=== PATIENT | male | born 1950 | race Caucasian/White ===

== ENCOUNTER → 2017-10-13 | Outpatient (CLI) | payer OTHER, MEDICARE ==
[~2017-10-13] VITALS: Ht 172.7 cm; Wt 90.7 kg
[~2017-10-13] MED LIST: AMITRIPTYLINE H10 M1 PO; FLEXERIL PO; LIPITOR10 MG PO; MOBIC15 MG PO; NORVASC5 MG PO; PERCOCET 5-3251 EACH PO
--- NOTE | ~2017-10-13 | HPC ---
[facility] [place] [address] PAIN MANAGEMENT CONSULTATION Name: KENTRELL COPPOLA Room #: REG [facility] Dano#: [id number] Admission: 10/13/17 Attend Phys: Izabel Bolton MD Discharge: Date of : 52 Report #: [id number] THIS REPORT FOR: //name// CC: Izabel Rubi MD DATE OF SERVICE: 10/13/2017 CHIEF COMPLAINT: Extreme pain radiating down into the left leg. I am almost unable to walk. HISTORY OF PRESENT ILLNESS: The patient is a 67-year-old gentleman who has been referred to the pain clinic for evaluation. The patient states that he has been having some pain and discomfort involving his low back. He and his bought a new bed. After sleeping on the mattress for a period of time, he noted some pain and discomfort in his low back. He felt that this might be as a result of the new mattress. He did try a heating pad in the lower area of his back. He noted that the pain in the lower back down into his left leg has become more problematic and painful over the last week. Because of the increasing pain, he went to see a chiropractor. He did have some adjustments. After about a week of adjustments, he continued to have pain, which was problematic. As a result of that, he was provided an MRI. At the conclusion of the MRI, it was felt that the patient has some significant pathology and that he should probably be seen by a pain physician. The patient states that [place] Because he did not have a referral, he was not seen. The patient was then referred to the pain clinic for further evaluation and workup. He denies any bowel or bladder dysfunction. He has noted pain, which is so severe that he has been unable to engage in activities of daily living. He is sleeping very poorly. Has not noted any significant [id number]-gpgxbnu medications or other medications to help decrease his pain at this juncture. He has not had back surgery. He denies any trauma to his back. ALLERGIES: No known drug allergies. CURRENT MEDICATIONS: 1. Lipitor 10 mg at bedtime. 2. Flexeril 10 mg t.i.d. for spasms. 3. Norvasc 5 mg daily. The patient states that he was given a pain medicine, the name of which he could not recall by his primary physician. 4. Aspirin 81 mg daily. PAST MEDICAL HISTORY: Hypercholesterolemia, hypertension. PAST SURGICAL HISTORY: [place] [address] PAIN MANAGEMENT CONSULTATION Name: KENTRELL COPPOLA Room #: REG [facility] Dano#: [id number] Admission: 10/13/17 Attend Phys: Izabel Bolton MD Discharge: Date of : 52 Report #: [id number] SOCIAL HISTORY: He is retired. He is . Denies use of tobacco. Occasional alcoholic beverage. REVIEW OF SYSTEMS: Questionnaire in the chart. A 12-point reveal generally good health, awakens at night to urinate, sexual difficulty, numbness in the left lower extremity over the last few days. LABORATORY DATA: MRI of the lumbar spine dated 10/08/2007 reveals: 1. L3-L4 disk narrowed with circumferential osteophyte/disk complex. No evidence of disk protrusion. Mild inferior neural foraminal encroachment present. Mild facet arthropathy. Thecal sac 0.9 cm AP. 2. L4-L5 disks narrowed with left recess disk extrusion. Disk material is extruded cranially to the disk line at the lateral recess extending 1.5 cm superior to the disk. There is localized mass effect on the lateral recess. There is advanced facet arthropathy and posterior ligamentum hypertrophy. The findings result in a 0.5 cm AP diameter at the midline thecal sac. There is severe bilateral neural foraminal encroachment. Thecal sac 0.5 cm AP. 3. L5-S1 the disk is normally positioned. No evidence of disk protrusion. No central canal stenosis or neural foraminal encroachment. Mild facet arthropathy. Thecal sac 1.2 cm AP. PAIN CLINIC ASSESSMENT: 1. The patient has not been treated for osteoarthritis. He is not being treated for rheumatoid arthritis. 2. Height 5 feet 8 inches, weight 200 pounds, BMI is 30. 3. Vital signs: Blood pressure 190/111. Pulse 88, respiratory rate 14, room air saturation 97%. 4. Pain intensity 10/10. 5. Fall risk. The patient has not fallen in the last 3 months. 6. Blood thinner. The patient is not on a blood thinner 7. History of hypertension. The patient is being treated for hypertension, states his blood pressure is usually normal but the pain is so intense that it elevate his blood pressure. 8. Opioid therapy greater than 6 weeks. The patient is not on an opioid contract. 9. Risk assessment tool. 10. Functional assessment tool. 11. Recreational drug use. The patient never used recreational drugs. 12. Tobacco: The patient is not a smoker. 13. Alcohol. The patient drinks about 6 alcoholic beverages per week. PHYSICAL EXAMINATION: GENERAL: The patient is a well-developed white male, appears his stated age. Orientation: The patient is alert and oriented x 3. The patient's affect is appropriate. Has facial features indicating pain with grimacing particularly with motion. [facility] [address] [place] [address] PAIN MANAGEMENT CONSULTATION Name: KENTRELL COPPOLA Room #: REG [facility] Dillan#: [id number] Admission: 10/13/17 Attend Phys: Izabel Bolton MD Discharge: Date of : 51 Report #: [id number] HEENT: Normocephalic, atraumatic. Extraocular eye muscles intact. Sclerae is nonicteric. Mucous membranes moist. Hearing is within normal limits. NECK: Good range of motion without bruits. HEART: Regular rate. ABDOMEN: Nontender, without organomegaly. MUSCULOSKELETAL: Normal without significant scoliosis, kyphosis or lordosis. The patient is at the upper extremities judged to be 5/5 for the major muscle groups in the upper extremity. Gas [employer] Pet[employer] Operator strength 5/5. Sensory within normal limits. Lower extremity, the patient is in a wheelchair. Requires some assistance while standing. Sits and constantly rubs his left leg while the interview is being undertaken. Positive straight leg raise. Rates his pain as a 10/10. Muscle strengths on the right, judged to be 5/5, left, difficult to appreciate secondary to patient's almost inability to stand on the left leg, continues to rub it while sitting. IMPRESSION: 1. Lumbar radiculopathy with extrusion with disk extrusion at L4-L5 migrating 1.4 cm superior to the disk resulting in mass effect upon the lateral recess. 2. Hypertension, elevated secondary to patient's extreme pain. 3. Hypercholesterolemia. RECOMMENDATIONS: We discussed treatment options with the patient. Risks and benefits of an epidural steroid injection were discussed. The patient had his disk present. It was placed in the computer. It was reviewed with the patient and his . The anatomy of the spine was discussed. The patient states that he could see the pathologic areas in his low back area. He and his agreed to proceed. Possible complication of the procedure were discussed. They could include but are not limited to infection, increased muscle soreness, headache, bleeding, worsening of pain, nerve damage and the patient elects to proceed. PROCEDURE NOTE: The patient was wheeled into the procedure room. He was assisted from the wheelchair onto the bed in the prone position. His back was sterilely prepped and the L4-L5 interspace. Fluoroscopy using the anterior, posterior as well as the lateral positioning of the fluoroscopy machine was used to identify the appropriate placement. This area was then infiltrated with 0.25% bupivacaine. A total of 80 mg Depo-Medrol, 40 mg triamcinolone and 2 mL of 0.25% bupivacaine was injected. The patient tolerated the procedure well. There were no complications. He did not complain of any pain or discomfort during the performance of the procedure. Fluoro time of 10 seconds was used. His pain decreased from 10-1 at the time of discharge. He has been given a script for Percocet 5/325 one p.o. q. 6 hours p.r.n. pain. The patient has also been given Elavil, amitriptyline 10 mg 1 p.o. at bedtime to help with the nerve pain as well as at night to help improve his sleep. He states he has not slept well for a number of days. He is quite exhausted as a result of that. He will [facility] [address] [place] [address] PAIN MANAGEMENT CONSULTATION Name: KENTRELL COPPOLA Room #: REG [facility] Matson#: [id number] Admission: 10/13/17 Attend Phys: Izabel Bolton MD Discharge: Date of : 51 Report #: [id number] call us if he has any problems with his medications. We would like to thank you for letting us participate in his care. We hope he continues to improve. <ELECTRONICALLY SIGNED> By: Izabel Bolton MD 10/20/17 0815 [id number] [id number] Izabel Bolton MD /[facility]
[2017-10-13 11:13] VITALS: BP 190/111
== END | disposition home or self-care (01) ==
LOC: PAIN 09:40
DX: M54.16 Radiculopathy, lumbar region (principal); I10 Essential (primary) hypertension; E78.00 Pure hypercholesterolemia, unspecified; Z68.30 Body mass index [BMI] 30.0-30.9, adult; Z79.899 Other long term (current) drug therapy; F11.20 Opioid dependence, uncomplicated

== ENCOUNTER → 2017-10-27 | Outpatient (CLI) | payer OTHER, MEDICARE ==
[~2017-10-27] VITALS: Ht 172.7 cm; Wt 89.4 kg
--- NOTE | ~2017-10-27 | HPC ---
[facility] [place] [address] PAIN MANAGEMENT CONSULTATION Name: KENTRELL COPPOLA Room #: REG [facility] Matson#: [id number] Admission: 10/27/17 Attend Phys: Izabel Bolton MD Discharge: Date of : 51 Report #: [id number] THIS REPORT FOR: //name// CC: Izabel Rubi MD DATE OF SERVICE: 10/27/2017 FOLLOWUP COMPLAINT: "Here for treatment for left leg pain, which is going down into my foot." FOLLOWUP HISTORY: The patient is a 67-year-old gentleman, who has been seen in the pain clinic, because of pain involving his low back and pain radiating down into his foot. The patient has noted some worsening of pain and discomfort in his back and leg. He recently bought a new bed. He felt that that might be the etiology of his back pain. Tried using a heating pad on his lower back. Continued to have pain that radiates down to his left leg. This has become more problematic over the last week. He has sought the attention of a chiropractor. He did have some adjustments made. After about a week of adjustments, he continued to have pain, which was still increasingly more problematic. An MRI was performed. From the MRI, it was felt that he had a significant problem in his back and he probably needed to be treated by a medical doctor. The patient was seen by a "doctor." He was referred to the pain clinic at [facility]. His pain has risen to the level that he is unable to engage in activities of daily living. He described as severe pain. His sleep has been very poor. Kbac-dnz-citpzdy medications have not been helpful. He was seen in the pain clinic on 10/13/2017 and has returned to the pain clinic for an epidural steroid injection at this juncture. ALLERGIES: No known drug allergies. MEDICATIONS: 1. Lipitor 10 mg at bedtime. 2. Flexeril 10 mg t.i.d. for spasm. 3. Norvasc 5 mg daily. The patient states that he was given a pain medication, the name of which he could not recall. 4. Aspirin 81 mg. PAIN ASSESSMENT: 1. The patient has not been treated in the past for osteoarthritis. He is not being treated for rheumatoid arthritis. 2. Height 5 feet 8 inches, weight 197 pounds, BMI is 30. 3. VITAL SIGNS: Blood pressure 151/102, pulse 102, respiratory rate 16, room air saturation 97%. 4. Pain intensity 10/10[place] [address] PAIN MANAGEMENT CONSULTATION Name: WINGTURNERKENTRELL JON Room #: REG [facility]#: [id number] Admission: 10/27/17 Attend Phys: Izabel Bolton MD Discharge: Date of : 52 Report #: [id number] 5. Fall risk. The patient has not fallen in the last 3 months. 6. Blood thinner. The patient is not on a blood thinner. 7. History of hypertension. The patient is being treated for hypertension. 8. Opioid therapy greater than 6 weeks. The patient is not on an opioid contract. 9. Risk assessment tool. 10. Functional assessment tool. 11. Recreational drug use. The patient denies use of recreational drugs. 12. Tobacco: The patient is not a smoker. 13. Alcohol: The patient drinks about a 6 alcoholic beverages per week. PHYSICAL EXAMINATION: GENERAL: The patient is a well-developed white male, appears his stated age. Orientation: He is alert and oriented x 3. Affect: The patient's affect is appropriate. Speech is fluent. HEENT: Normocephalic, atraumatic. Extraocular eye muscles intact. Sclerae is nonicteric. Mucous membranes are moist. Hearing is within normal limits. NECK: With good range of motion without bruits or adenopathy. HEART: Regular rate. S1, S2. ABDOMEN: Nontender, without organomegaly. MUSCULOSKELETAL: Without significant scoliosis, kyphosis or lordosis. 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 Sensory exam is within normal limits. Lower extremity, the patient is in a wheelchair. Require some assistance in standing. Sits and constantly rubs his left leg while interviewed. Positive straight leg raise on the left. Rates his pain as a 10/10 at this juncture. Muscle strength on the right is judged to be 5/5, left difficult to appreciate secondary to patient's inability to stand on the left leg. IMPRESSION: 1. Lumbar radiculopathy with extrusion of disk at L4-L5 with migration 1.4 cm superior to the disk resulting in mass effect upon the lateral recess. 2. Hypertension. 3. Hypercholesterolemia. RECOMMENDATIONS: We discussed treatment options with the patient. Risks and benefits of an epidural steroid injection had been discussed with the patient. Possible complications of the procedure were reviewed. The patient has returned today for an epidural steroid injection. He has thought about the procedure. Questions have been sought and answered. The patient was then assisted into the procedure room. He was helped on to the bed. He was placed in the prone position. His back was sterilely prepped with a Betadine solution at the L4-L5 interspace area. Fluoroscopy was used to identify the appropriate injection site using anterior and posterior as well as lateral viewing. The left paraspinous L4-L5 area was identified. This area was then infiltrated with [facility] [address] [place] [address] PAIN MANAGEMENT CONSULTATION Name: KENTRELL COPPOLA Room #: REG [facility]#: [id number] Admission: 10/27/17 Attend Phys: Izabel Bolton MD Discharge: Date of : 51 Report #: [id number] 0.25% bupivacaine. A 17-gauge Tuohy with loss of resistance technique was used to gain access to the epidural space. There was no CSF, heme or paresthesia. A total of 80 mg Depo-Medrol, 40 mg triamcinolone and 2 mL of 0.25% bupivacaine was injected. The patient tolerated the procedure well. There were no complications. He remained in the pain clinic for an appropriate amount of time. He will follow up in the future as needed. We would like to thank you for letting us participate in his care. We hope he continues to improve. The patient's pain score decreased to 3 at the time of discharge. A total of 29 seconds fluoroscopy time was used. <ELECTRONICALLY SIGNED> By: Izabel Bolton MD 11/10/17901 1612 25 Izabel Bolton MD /nt
[2017-10-27 11:03] VITALS: BP 151/102
== END | disposition home or self-care (01) ==
LOC: PAIN 06:58
DX: M54.16 Radiculopathy, lumbar region (principal); G89.29 Other chronic pain; I10 Essential (primary) hypertension; E78.00 Pure hypercholesterolemia, unspecified; Z79.899 Other long term (current) drug therapy; Z79.82 Long term (current) use of aspirin; Z79.891 Long term (current) use of opiate analgesic

== ENCOUNTER → 2018-05-02 | Outpatient (CLI) | payer OTHER, MEDICARE ==
[~2018-05-02] VITALS: Ht 172.7 cm; Wt 94.7 kg
[~2018-05-02] MED LIST changes: +MEDROLDOSEPACK PO
--- NOTE | ~2018-05-02 | HPC ---
[facility] [place] [address] [address] PAIN MANAGEMENT CONSULTATION Name: KENTRELL COPPOLA Room #: REG [facility] GrimaldoJesus#: [id number] Admission: 05/02/18 Attend Phys: Izabel Bolton MD Discharge: Date of : 51 Report #: [id number] THIS REPORT FOR: //name// CC: Izabel Rubi MD DATE OF SERVICE: 05/02/2018 PRIMARY CARE PHYSICIAN: Miles Hill M.D. CHIEF COMPLAINT: Left hip pain with radiation down into the knee. FOLLOWUP HISTORY: The patient is a 67-year-old gentleman who has been seen in the pain clinic because of lumbar radiculopathy. He has undergone epidural steroid injections and gleaned benefits from these. He returns today indicating that he is having some pain and discomfort in his left hip with some radiating down to his knee. He rates his pain as 5/10 at this juncture. Pain is exacerbated by walking, bending, reaching and certain activities of daily living. The patient has had 3 epidural steroid injections. He has gleaned benefits greater than 50% from them. At this juncture, he is contemplating options. He was able to go to [facility]. ALLERGIES: No known drug allergies. CURRENT MEDICATIONS: Lipitor 10 mg at bedtime, Flexeril 10 mg t.i.d. for spasms, Norvasc 5 mg daily, and aspirin 81 mg. PAIN CLINIC ASSESSMENT AND PQRS: 1. The patient is not being treated for osteoarthritis. He has not been treated for rheumatoid arthritis. 2. Height 5 feet 8 inches, weight 208 pounds, BMI is 31.8. 3. Vital Signs: Blood pressure 136/86, pulse 70, respiratory rate 16, room air saturation is 97%. 4. Pain intensity 5/10. 5. Fall risk. The patient has not fallen in the last 3 months. 6. Blood thinner. The patient is not on a blood thinning medication. 7. Hypertension. The patient is being treated for hypertension. 8. Opioid greater than 6 weeks. The patient is not on a regular opioid regimen. 9. Risk assessment tool, low risk 09/02 for opioid use. 10. Functional assessment tool, . 11. Recreational drug use: The patient denies. 12. Tobacco: The patient has never smoked. 13. Alcohol: The patient drinks occasionally. [address] [address] PAIN MANAGEMENT CONSULTATION Name: WINGTURNERKENTRELL JON Room #: REG [facility]#: [id number] Admission: 05/02/18 Attend Phys: Izabel Bolton MD Discharge: Date of : 51 Report #: [id number] PHYSICAL EXAMINATION: GENERAL: The patient is a well-developed, well-nourished, white male. Appears his stated age. He is alert and oriented x 3. Speech is fluent. HEENT: Normocephalic, atraumatic. Extraocular eye muscles intact. Sclerae nonicteric. Mucous membranes are moist. Hearing is within normal limits. NECK: With good range of motion without bruits or adenopathy. HEART: Regular rate. S1, S2. ABDOMEN: Nontender, without organomegaly. MUSCULOSKELETAL: Without significant scoliosis, kyphosis or lordosis. Upper extremity muscle strength is judged to be 5/5 for the major muscle groups. The patient has some pain in the left leg with positive straight leg raise. Muscle strength on the right judged to be 5/5. States that he is able to walk his dog around the block on occasion, but sometimes is unable to follow up with walking his dog. IMPRESSION: 1. Lumbar radiculopathy with extrusion of disk at L4-L5 and migration 1.4 cm superior to the disk resulting in a mass effect on the lateral recess. 2. Hypertension. 3. Hypercholesterolemia. RECOMMENDATIONS: We discussed treatment options with the patient. We will consider a Medrol Dosepak and note its efficacy. Possibility of another injection in the future is possible. Again, the patient is having some pain and discomfort. We will try a Medrol Dosepak. A script for Medrol Dosepak has been written. He will call us if he has any problems with the medications. We would like to thank you for letting us participate in his care. We hope he continues to improve. By: 1549 [id number] Izabel Bolton MD /[facility]
[2018-05-02 10:03] VITALS: BP 136/86
== END ==
LOC: PAIN 06:45
DX: M54.16 Radiculopathy, lumbar region (principal); I10 Essential (primary) hypertension; E78.00 Pure hypercholesterolemia, unspecified

== ENCOUNTER → 2018-08-15 | Outpatient (CLI) | payer OTHER, MEDICARE ==
[~2018-08-15] VITALS: Ht 172.7 cm; Wt 97.0 kg
[~2018-08-15] MED LIST changes: +AMLODIPINE BESY10 MG PO
--- NOTE | ~2018-08-15 | HPC ---
[facility] [place] [address] PAIN MANAGEMENT CONSULTATION Name: EMILDOMINGAKENTRELL Esequiel Room #: REG Alvarado Matson#: [id number] Admission: 08/15/18 Attend Phys: Izabel Bolton MD Discharge: Date of : 52 Report #: [id number] THIS REPORT FOR: //name// CC: Izabel Aquino Nestor DATE OF SERVICE: 08/15/2018 CHIEF COMPLAINT: Here for an epidural steroid injection. HISTORY OF PRESENT ILLNESS: The patient is a 68-year-old gentleman who has been followed in the Pain Clinic because of lumbar radiculopathy. Epidural steroid injections in the past have been beneficial. He has gleaned greater than 50% improvement with these. He returns today indicating that his pain has returned. He is experiencing pain that is radiating down in the L4-L5 dermatomal distribution. He rates it as a 5/10. He notes that when he reaches up to grab or move something, he notes worsening of pain down his leg. 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 He notes increased pain and discomfort when he is sleeping. When he rolls over, he must do it carefully, otherwise it causes a significant amount of pain and discomfort. He has used a wheelchair in the past. ALLERGIES: No known drug allergies. CURRENT MEDICATIONS: Lipitor 10 mg 1 p.o. at bedtime, Flexeril 10 mg t.i.d., Norvasc 5 mg, aspirin 81 mg. PAIN CLINIC ASSESSMENT AND PQRS: 1. The patient is not being treated for osteoarthritis. He is not being treated for rheumatoid arthritis. 2. Height 5 feet 8 inches, weight is 213 pounds, BMI is 32.5. 3. Vital signs: Blood pressure 145/86, pulse 83, respiratory rate 20, room air saturation 98%. 4. Pain intensity: 5/10. 5. Fall risk: The patient has not fallen in the last 3 months. 6. Blood thinner: The patient is not on a blood thinning medication. 7. Hypertension: The patient is being treated for hypertension. 8. Opioids greater than 6 weeks: The patient is not on an opioid regimen on a regular basis. 9. Risk assessment tool: 08/05, low for opioid use. 10. Functional assessment tool: . 11. Recreational drug use: The patient denies use of recreational drugs. 12. Tobacco: The patient denies use of tobacco. 13. Alcohol: The patient frequently drinks a beer a day. PHYSICAL EXAMINATION: [address] [address] PAIN MANAGEMENT CONSULTATION Name: KENTRELL COPPOLA Esequiel Room #: REG [facility] MariiJesus#: [id number] Admission: 08/15/18 Attend Phys: Izabel Bolton MD Discharge: Date of : 52 Report #: [id number] GENERAL: The patient is a well-developed, well-nourished, white male. He appears his stated age. He is alert and oriented x 3. His affect is appropriate. Speech is fluent. HEENT: Normocephalic, atraumatic. Extraocular eye muscles intact. Sclerae nonicteric. Mucous membranes are moist. Hearing is within normal limits. NECK: With good range of motion without bruits or JVD. HEART: Regular rate, S1 and S2. ABDOMEN: Nontender. Bowel sounds present. MUSCULOSKELETAL: Without significant scoliosis, kyphosis or lordosis. Upper extremity muscle strength is judged to be 5/5 for the major muscle groups in the upper extremity. The patient has pain down in the left leg with positive straight leg raise. Muscle strength is judged to be 5-/5. The patient states he is able to walk his dog around the block on occasion, but sometimes notes problem walking because of his pain and discomfort. IMPRESSION: 1. Lumbar radiculopathy with history of extrusion of a disk at L4-L5 with migration 1.4 cm superior to the disk resulting in a mass effect upon the lateral recess. 2. Hypertension. 3. Hypercholesterolemia. RECOMMENDATIONS: We discussed treatment options with the patient. At this juncture, risks and benefits of an epidural steroid injection were again discussed and reviewed. They include but are not limited to infection, worsening of pain, no improvement in pain, nerve damage, paralysis, and the patient elects to proceed. PROCEDURE NOTE: The patient was taken to the procedure area. He was assisted in getting on the examination table. A pillow was placed under his abdomen to bolster and improve positioning. Fluoroscopy using anterior and posterior as well as lateral viewing were implemented. The patient's back was sterilely prepped at the L4-L5 interspace. A 0.25% bupivacaine was infiltrated using a 25-gauge needle. A 17-gauge Tuohy with loss of resistance technique was used to gain access at the L4-L5 interspace. Aspiration was negative. A total of 80 mg Depo-Medrol, 40 mg triamcinolone, and 2 mL of 0.25% bupivacaine was injected. The patient tolerated the procedure well. There were no complications. He remained in the Pain Clinic for an appropriate amount of time. We would like to thank you for letting us participate in his care. We hope he continues to improve. By: [id number] MD teja Unger
[2018-08-15 13:23] VITALS: BP 145/86
--- NOTE | 2018-08-15 13:36 | NUR ---
Pain Clinic Assessment: 1. History of Osteoarthritis: Not Applicable History of Rheumatoid Arthritis: Not Applicable 2. Height: 5 ft. 8 in. 172.7 cm. Weight: 213.8 lb. oz. 96.979 kg. Patient's BMI: 32.5 3. Vital Signs: BP: 145/86 Pulse: 83 Resp: 20 Temp: 02 Sat: 98 ECG Mon: 4. Pain Intensity: 5 5. Fall Risk: Dizziness: N Needs help standing or walking: N Fallen in the last 3 months: N Fall risk comments: 6. Patient on Blood Thinner: None 7. History of Hypertension: Y 8. Opioid Therapy greater than 6 weeks: N Opiate Contract Signed: 9. Risk Assessment Tool Provided: LOW RISK 09/02 10. Functional Assessment Tool: 11. Recreational Drug Use: Never Drug Type: Tobacco Use: Never Smoker Tobacco Type: Amount or Packs/day: How Many Years: Alcohol Use: Yes Frequency: Quant:
== END | disposition home or self-care (01) ==
LOC: PAIN 07:13
DX: M54.16 Radiculopathy, lumbar region (principal); I10 Essential (primary) hypertension; E78.00 Pure hypercholesterolemia, unspecified; Z79.899 Other long term (current) drug therapy; Z79.82 Long term (current) use of aspirin